=== PATIENT | female | born 1975 | race Caucasian/White ===

== ENCOUNTER → 2019-06-19 | Outpatient (CLI) | payer BC ==
[~2019-06-19] MED LIST: PHEN37.555 PO
--- NOTE | 2019-06-19 14:28 | Diagnostic Imaging Report ---
INDICATION: Thyromegaly TECHNIQUE: Grayscale sonographic images of the thyroid gland. CORRELATION STUDY: None FINDINGS: RIGHT LOBE: 4.8 x 1.8 x 1.5 cm. There is normal echotexture about the right lobe. LEFT LOBE: 4.4 x 1.0 x 1.3 cm. There is normal echotexture about the left lobe. Isthmus appears unremarkable. IMPRESSION: Unremarkable appearing thyroid ultrasound examination. (Normal gland size: 4-5 x 2 x 2 cm) Dictated by: Dictated on workstation # [id number]
== END ==
LOC: RAD 13:05
PROVIDERS: ATTEND Nurse Practitioner Family
DX: E01.0 Iodine-deficiency related diffuse (endemic) goiter (principal)
CPT/HCPCS: 76536